=== PATIENT | female | born 1935 | race Caucasian/White ===

== ENCOUNTER 2022-01-13 20:03 | Observation (INO) ==
[2022-01-13 21:55] LABS: Basophils # 0.1 K/mcL (0.0-0.2); Basophils % 0.9 %; Eosinophils # 0.1 K/mcL (0.0-0.6); Eosinophils % 1.5 %; Hematocrit 39.3 % (35.3-44.9); Hemoglobin 13.1 g/dL (11.5-15.4); Immature Granulocytes % 0.1 % (0-4); Lymphocytes # 2.5 K/mcL (0.6-4.6); Lymphocytes % 30.6 %; Mean Corpuscular HGB Conc 33.3 g/dL (31.6-35.5); Mean Corpuscular Hemoglobin 30.9 pg (28.0-33.3); Mean Corpuscular Volume 92.7 fL (83.0-100.0); Mean Platelet Volume 8.9 fL (9.4-12.4); Monocytes # 0.7 K/mcL (0.0-1.3); Monocytes % 8.8 %; Neutrophils # 4.7 K/mcL (1.6-8.9); Platelet Count 294 K/mcL (140-400); Red Blood Count 4.24 M/mcL (3.82-4.97); Red Cell Distribution Width 12.9 % (11.5-14.5); Segmented Neutrophils % 58.1 %; White Blood Count 8.2 K/mcL (4.3-11.1)
[2022-01-13 22:14] LABS: Activated Partial Thrombo Time 31.9 Seconds (26.0-36.0); INR 1.1; Prothrombin Time 12.4 Seconds (9.4-12.1)
[2022-01-13 22:15] LABS: BUN/Creatinine Ratio 17 (6-26); Blood Urea Nitrogen 13 mg/dL (8-23); Calcium 9.2 mg/dL (8.6-10.3); Carbon Dioxide 25 mEq/L (23-29); Chloride 107 mEq/L (98-107); Glucose 116 mg/dL (70-105); Osmolality,Calculated 293 (280-300); Potassium 3.5 mEq/L (3.5-5.1); Sodium 141 mEq/L (136-145); eGFR For African Americans > 60 (> 60); eGFR For Non-African Americans > 60 (> 60)
[2022-01-13 22:16] LABS: Troponin I < 0.03 ng/mL (< 0.04)
[2022-01-13 22:30] LABS: Thyroid Stimulating Hormone 1.793 mcIU/mL (0.340-5.600)
[2022-01-13] MEDS ORDERED: Heparin 25,000UNIT/250ML 1/2NS 25,000 UNIT/250 ML IV.SOLN IVC SCH (23:45)
[2022-01-13] MEDS ORDERED: *HR* Heparin 5,000 UNIT/ML VIAL IVP ONE (23:47)
[2022-01-13] MEDS ORDERED: *HR* Heparin 5,000 UNIT/ML VIAL IVP PRN ×2 (23:47)
[2022-01-14] MEDS ORDERED: Melatonin 3 MG TABLET PO PRN (00:40)
[2022-01-14] MEDS ORDERED: Naloxone 0.4 MG/ML INJ IVP PRN (00:40)
[2022-01-14] MEDS ORDERED: SULFUR HEXAFLUORIDE MICROSPHR 25 MG VIAL IVP PRN (00:42)
[2022-01-14] MEDS: *HR* Heparin 5,000 UNIT/ML VIAL SQ SCH ×2 (05:46→17:41)
[2022-01-14 06:11] LABS: Mean Corpuscular HGB Conc 33.8 g/dL (31.6-35.5); Mean Corpuscular Hemoglobin 31.3 pg (28.0-33.3); Mean Corpuscular Volume 92.4 fL (83.0-100.0); Mean Platelet Volume 9.2 fL (9.4-12.4); Platelet Count 292 K/mcL (140-400); Red Blood Count 3.68 M/mcL (3.82-4.97); Red Cell Distribution Width 13.1 % (11.5-14.5); White Blood Count 8.9 K/mcL (4.3-11.1)
[2022-01-14 06:14] LABS: INR 1.2
[2022-01-14 06:15] LABS: Hemoglobin 11.5 g/dL (11.5-15.4)
[2022-01-14 06:50] LABS: BUN/Creatinine Ratio 18 (6-26); Blood Urea Nitrogen 12 mg/dL (8-23); Calcium 8.7 mg/dL (8.6-10.3); Carbon Dioxide 25 mEq/L (23-29); Chloride 108 mEq/L (98-107); Glucose 97 mg/dL (70-105); Magnesium 2.1 mg/dL (1.6-2.6); Osmolality,Calculated 292 (280-300); Phosphorous 3.6 mg/dL (2.7-4.5); Potassium 3.6 mEq/L (3.5-5.1); Sodium 141 mEq/L (136-145); eGFR For African Americans > 60 (> 60); eGFR For Non-African Americans > 60 (> 60)
[2022-01-14] MEDS ORDERED: Aspirin 81 MG TAB.CHEW PO SCH (09:00)
[2022-01-14] MEDS: Pantoprazole 40 MG VIAL IVP SCH (09:15)
[2022-01-14] MEDS: Apixaban 5 MG TABLET PO SCH (21:25)
[2022-01-15] MEDS: *HR* Heparin 5,000 UNIT/ML VIAL SQ SCH (05:15)
[2022-01-15 07:35] VITALS: BP 108/62; PULSE 67; TEMP 97.4; O2SAT 93
[2022-01-15] MEDS: Apixaban 5 MG TABLET PO SCH (08:25)
[2022-01-15] MEDS: Pantoprazole 40 MG VIAL IVP SCH (08:25)
[2022-01-15] MEDS ORDERED: Apixaban 5 MG TABLET PO SCH (21:00)
== END 2022-01-15 12:23 | disposition home or self-care (01) ==
LOC: 2ANU 20:03 → EMEROOARM 20:03 → SUATTDRO 01-14 00:37 → 2ANU 01-14 01:34
PROVIDERS: ADMIT Internal Medicine; ATTEND Internal Medicine